=== PATIENT | female | born 1975 | race Caucasian/White ===

== ENCOUNTER 2016-10-30 18:16 | Emergency (ER) | payer MEDICAID ==
[~2016-10-30] VITALS: Ht 162.6 cm; Wt 79.5 kg
[2016-10-30 18:17] VITALS: BP 110/68
[2016-10-31] MEDS ORDERED: FLUO20CA8 PO (12:51)
[2016-10-31] MEDS ORDERED: TRAZ-136 PO (12:51)
[2016-10-31] MEDS ORDERED: TYLE325T5 PO (12:52)
[2016-10-31] MEDS ORDERED: IBUP-1022 PO (12:52)
[2016-10-31] MEDS ORDERED: CLEO300C2 PO (13:04)
== END 2016-10-30 19:11 | disposition left against medical advice (07) ==
LOC: M ED 18:16
DX: Z53.21 Procedure and treatment not carried out due to patient leaving prior to being seen by health care provider (principal); K08.89 Other specified disorders of teeth and supporting structures

== ENCOUNTER 2016-10-31 12:38 | Emergency (ER) | payer MEDICAID ==
[~2016-10-31] VITALS: Ht 162.6 cm; Wt 81.6 kg
[2016-10-31 12:38] VITALS: BP 100/55
[2016-10-31] MEDS ORDERED: TRAZ-136 PO (12:51)
[2016-10-31] MEDS ORDERED: FLUO20CA8 PO (12:51)
[2016-10-31] MEDS ORDERED: TYLE325T5 PO (12:52)
[2016-10-31] MEDS ORDERED: IBUP-1022 PO (12:52)
[2016-10-31] MEDS ORDERED: CLEO300C2 PO (13:04)
[2016-10-31] MEDS ORDERED: CLINDAMYCIN 150 MG CAP PO ONE (13:15)
[2016-10-31] MEDS ORDERED: NORCO, ANEXSIA 5/325MG TABLET (HYDROcodone/ACETAMINOPHEN) PO ONE (13:15)
== END 2016-10-31 13:37 | disposition home or self-care (01) ==
LOC: M ED 12:38
DX: K02.9 Dental caries, unspecified (principal); F33.8 Other recurrent depressive disorders; F17.210 Nicotine dependence, cigarettes, uncomplicated; Z79.899 Other long term (current) drug therapy; Z88.1 Allergy status to other antibiotic agents

== ENCOUNTER → 2016-12-25 | Outpatient (CLI) | payer MEDICAID, SELFPAY ==
[~2016-12-25] MED LIST: CLEO300C2 PO; FLUO20CA8 PO; IBUP-1022 PO; TRAZ-136 PO; TYLE325T5 PO
== END ==
LOC: M OUTALCOH 07:42
PROVIDERS: ATTEND Psychiatry & Neurology Psychiatry
DX: F12.20 Cannabis dependence, uncomplicated (principal); F14.20 Cocaine dependence, uncomplicated

== ENCOUNTER 2016-12-29 10:48 | Outpatient (RCR) | payer MEDICAID | END 2017-01-06 | LOC: M OUTALCOH 10:48 | PROVIDERS: ATTEND Psychiatry & Neurology Psychiatry | DX: F14.20 Cocaine dependence, uncomplicated (principal); F12.20 Cannabis dependence, uncomplicated; F11.20 Opioid dependence, uncomplicated; F17.200 Nicotine dependence, unspecified, uncomplicated ==

== ENCOUNTER → 2017-01-29 | Outpatient (REF) | payer MEDICAID ==
[2017-02-11 10:08] LABS: BENZODIAZEPINES, URINE SCREEN Negative ng/mL (Cutoff=200); METHADONE, URINE SCREEN Negative ng/mL (Cutoff=300); pH, URINE 5.4 (4.5-8.9)
== END ==
LOC: M LAB REF 16:06
PROVIDERS: ATTEND Nurse Practitioner Adult Health
DX: Z00.00 Encounter for general adult medical examination without abnormal findings (principal)

== ENCOUNTER → 2017-02-21 | Outpatient (REF) | payer OTHER | LOC: M SMT 17:14 | PROVIDERS: ATTEND Nurse Practitioner Family | DX: N39.46 Mixed incontinence (principal) ==

== ENCOUNTER 2017-03-15 15:34 | Outpatient (RCR) | payer MEDICAID | END 2017-04-08 | LOC: M OUTALCOH 15:34 | DX: F14.20 Cocaine dependence, uncomplicated (principal); F12.20 Cannabis dependence, uncomplicated; F11.20 Opioid dependence, uncomplicated; F17.200 Nicotine dependence, unspecified, uncomplicated ==

== ENCOUNTER → 2018-08-23 | Outpatient (CLI) | payer MEDICAID ==
[~2018-08-23] MED LIST changes: -TRAZ-136 PO; +TRAZ-163 PO
== END ==
LOC: M OUTALCOH 08:14
PROVIDERS: ATTEND Psychiatry & Neurology Psychiatry
DX: F11.20 Opioid dependence, uncomplicated (principal); F14.20 Cocaine dependence, uncomplicated; F12.20 Cannabis dependence, uncomplicated

== ENCOUNTER 2018-09-03 10:52 | Outpatient (RCR) | payer MEDICAID | END 2018-09-06 | LOC: M OUTALCOH 10:52 | PROVIDERS: ATTEND Psychiatry & Neurology Psychiatry | DX: F14.20 Cocaine dependence, uncomplicated (principal); F12.20 Cannabis dependence, uncomplicated; F11.20 Opioid dependence, uncomplicated; F17.200 Nicotine dependence, unspecified, uncomplicated ==

== ENCOUNTER → 2019-10-20 | Outpatient (CLI) | payer MEDICAID ==
[~2019-10-20] MED LIST changes: +BANO25CA PO; +CIPR-249 PO; +CLIN300C5 PO; +FLUO20CA20 PO; -FLUO20CA8 PO; +MACR100C43 PO; +OXYB10TA23 PO; +REME15TA2 PO; +REME30TA PO; +SERT-138 PO; +SUBO12MI SL; +TOPA50TA8 PO; -TRAZ-163 PO; +TRAZ-257 PO; +ZOLOFT
[2019-10-20 15:47] LABS: ALBUMIN 3.5 GM/DL (3.2-5.2); ALT/SGPT 14 U/L (12-78); BILIRUBIN,TOTAL 0.3 MG/DL (0.2-1.0); BLOOD UREA NITROGEN 16 MG/DL (7-18); CALCIUM LEVEL 8.6 MG/DL (8.5-10.1); CARBON DIOXIDE LEVEL 24 MEQ/L (21-32); CHLORIDE LEVEL 111 MEQ/L (98-107); CREATININE FOR GFR 1.19 MG/DL (0.55-1.30); GLOMERULAR FILTRATION RATE 52.2 (>58); GLUCOSE, FASTING 106 MG/DL (70-100); POTASSIUM SERUM 3.9 MEQ/L (3.5-5.1); SODIUM LEVEL 141 MEQ/L (136-145); TOTAL PROTEIN 7.1 GM/DL (6.4-8.2)
[2019-10-20 15:53] LABS: APPEARANCE, URINE HAZY (CLEAR); BACTERIA, URINE AUTO NEGATIVE (NEGATIVE); BILIRUBIN, URINE AUTO NEGATIVE (NEGATIVE); BLOOD, URINE BLOOD NEGATIVE (NEGATIVE); CALCIUM OXALATE CRYSTALS LARGE; COLOR, URINE YELLOW (YELLOW); GLUCOSE, URINE (UA) AUTO NEGATIVE (NEGATIVE); KETONE, URINE AUTO NEGATIVE (NEGATIVE); LEUKOCYTE ESTERASE, URINE AUTO 3+ (NEGATIVE); MUCUS, URINE SMALL (NEGATIVE); NITRITE, URINE AUTO NEGATIVE (NEGATIVE); PROTEIN, URINE AUTO NEGATIVE (NEGATIVE); RBC, URINE AUTO 10 /HPF (0-3); SPECIFIC GRAVITY URINE AUTO 1.021 (1.002-1.035); SQUAMOUS EPITHELIAL CELL UR AU 5 /HPF (0-6); UROBILINOGEN, URINE AUTO 0.2 mg/dL (0.0-2.0); WBC, URINE AUTO 22 /HPF (0-3)
[2019-10-20 15:56] LABS: HEPATITIS B SURFACE ANTIBODY NEGATIVE (POSITIVE)
[2019-10-20 15:58] LABS: BASO # 0.1 10^3/uL (0.0-0.2); BASO % 0.9 % (0.0-1.0); EOS # 0.1 10^3/uL (0.0-0.5); EOS % 1.4 % (0.0-3.0); HEMATOCRIT 39.2 % (36.0-47.0); HEMOGLOBIN 12.6 g/dl (12.0-15.5); LYMPH # 2.1 10^3/uL (1.5-5.0); LYMPH % 26.3 % (24.0-44.0); MEAN CORPUSCULAR HEMOGLOBIN 28.8 pg (27.0-33.0); MEAN CORPUSCULAR HGB CONC 32.1 g/dl (32.0-36.5); MEAN CORPUSCULAR VOLUME 89.5 fl (80.0-96.0); MONO # 0.4 10^3/uL (0.0-0.8); MONO % 5.3 % (0.0-5.0); NEUTROPHILS # 5.2 10^3/uL (1.5-8.5); NEUTROPHILS % 65.7 % (36.0-66.0); PLATELET COUNT, AUTOMATED 282 10^3/uL (150-450); RED BLOOD COUNT 4.38 10^6/uL (4.00-5.40); WHITE BLOOD COUNT 7.9 10^3/uL (4.0-10.0)
[2019-10-20 16:07] LABS: HEPATITIS B SURFACE ANTIGEN NEGATIVE (NEGATIVE)
[2019-10-25 01:07] LABS: HEPATITIS A IgG TOTAL Positive (Negative); HEPATITIS C QUANTITATION HCV Not Detected IU/mL (.)
== END ==
LOC: M PLALAB 13:19
PROVIDERS: ATTEND Physician Assistant Medical
DX: Z02.2 Encounter for examination for admission to residential institution (principal)

== ENCOUNTER 2019-12-25 14:25 | Emergency (ER) | payer MEDICAID ==
[~2019-12-25] VITALS: Ht 162.6 cm; Wt 90.8 kg
[~2019-12-25 14:25] MED LIST changes: -BANO25CA PO; -CIPR-249 PO; -CLIN300C5 PO; -MACR100C43 PO; -OXYB10TA23 PO; -REME15TA2 PO; -REME30TA PO; -SERT-138 PO; -SUBO12MI SL; -TOPA50TA8 PO; -ZOLOFT
[2019-12-25] MEDS ORDERED: TOPA50TA8 PO (14:35)
[2019-12-25] MEDS ORDERED: ZOLOFT (14:35)
[2019-12-25] MEDS ORDERED: REME30TA PO (14:35)
[2019-12-25] MEDS ORDERED: SUBO12MI SL (14:35)
[2019-12-25] MEDS ORDERED: PANTOPRAZOLE 40MG VIAL (C9113 PER 1) IV ONE (15:30)
[2019-12-25] MEDS ORDERED: NS 1,000 ML IV ONE (15:30)
--- NOTE | 2019-12-25 15:57 | REPVR ---
PROCEDURE INFORMATION: Exam: XR Complete Acute Abdomen Series Exam date and time: 12/25/2019 3:18 PM Age: 44 years old Clinical indication: Abdominal pain TECHNIQUE: Imaging protocol: XR complete acute abdomen series, including 2 or more views of the abdomen and a single view chest. COMPARISON: No relevant prior studies available. FINDINGS: Lungs: No acute airspace disease. Pleural space: No pleural effusion. Heart/Mediastinum: Normal configuration of the heart. Gastrointestinal tract: Bowel dilatation, disproportionately involving the colon, along with prominent stool. Intraperitoneal space: No free air. Bones/joints: Cervical spine fusion. IMPRESSION: 1. No acute airspace or pleural disease. 2. Bowel dilatation, disproportionately involving the colon, along with prominent stool. Electronically signed by: George Bright On 12/25/2019 15:57:30 PM
[2019-12-25 16:13] LABS: BASO # 0.1 10^3/uL (0.0-0.2); EOS # 0.4 10^3/uL (0.0-0.5); EOS % 6.3 % (0.0-3.0); HEMATOCRIT 32.3 % (36.0-47.0); HEMOGLOBIN 10.7 g/dl (12.0-15.5); LYMPH # 2.5 10^3/uL (1.5-5.0); LYMPH % 43.8 % (24.0-44.0); MEAN CORPUSCULAR HEMOGLOBIN 28.8 pg (27.0-33.0); MEAN CORPUSCULAR HGB CONC 33.1 g/dl (32.0-36.5); MEAN CORPUSCULAR VOLUME 86.8 fl (80.0-96.0); MONO # 0.4 10^3/uL (0.0-0.8); MONO % 7.5 % (0.0-5.0); NEUTROPHILS # 2.4 10^3/uL (1.5-8.5); NEUTROPHILS % 41.1 % (36.0-66.0); PLATELET COUNT, AUTOMATED 209 10^3/uL (150-450); RED BLOOD COUNT 3.72 10^6/uL (4.00-5.40); WHITE BLOOD COUNT 5.8 10^3/uL (4.0-10.0)
[2019-12-25 16:34] LABS: ALBUMIN 3.2 GM/DL (3.2-5.2); ALT/SGPT 14 U/L (12-78); BILIRUBIN,DIRECT < 0.1 MG/DL (0.0-0.2); BILIRUBIN,TOTAL 0.3 MG/DL (0.2-1.0); BLOOD UREA NITROGEN 18 MG/DL (7-18); CALCIUM LEVEL 8.5 MG/DL (8.5-10.1); CARBON DIOXIDE LEVEL 22 MEQ/L (21-32); CHLORIDE LEVEL 110 MEQ/L (98-107); GLOMERULAR FILTRATION RATE 57.2 (>58); GLUCOSE, FASTING 84 MG/DL (70-100); LIPASE 464 U/L (73-393); POTASSIUM SERUM 3.9 MEQ/L (3.5-5.1); SODIUM LEVEL 139 MEQ/L (136-145); TOTAL PROTEIN 6.6 GM/DL (6.4-8.2)
[2019-12-25] MEDS ORDERED: CIPR-249 PO (19:56)
[2019-12-25] MEDS ORDERED: MAGNESIUM CITRATE 300 ML BTL PO ONE (20:00)
[2019-12-25] MEDS ORDERED: CIPROFLOXACIN 500MG TABLET PO ONE (20:00)
[2019-12-25 20:21] VITALS: BP 112/63
== END 2019-12-25 20:23 | disposition home or self-care (01) ==
LOC: M ED 14:25
DX: N39.0 Urinary tract infection, site not specified (principal); K59.00 Constipation, unspecified; I10 Essential (primary) hypertension; F15.10 Other stimulant abuse, uncomplicated; Z79.899 Other long term (current) drug therapy
CPT/HCPCS: 74021; 80048; 80076; 81001; 83690; 85025; 87086; 96361; 96374; 99284; C9113

== ENCOUNTER → 2020-01-14 | Outpatient (CLI) | payer OTHER ==
[~2020-01-14] MED LIST changes: +CIPR-249 PO; +REME30TA PO; +SUBO12MI SL; +TOPA50TA8 PO; +ZOLOFT
--- NOTE | 2020-01-19 12:45 | REPPI ---
CHEST X-RAY: 3-VIEWS PRESENTED HISTORY: Chronic obstructive pulmonary disease (COPD). COMPARISON STUDY: None. FINDINGS: The patient is status post ventral discectomy and fusion plating in the cervical spine. The lungs are well-inflated and clear. The pleural angles are sharp. Heart size is normal. Pulmonary vasculature is not increased. No bony abnormality is seen. Mild gaseous distention of the stomach is noted in the upper abdomen. IMPRESSION: Status post cervical spine fusion. Otherwise, no acute disease. MTDD
== END ==
LOC: M PLAIMG 13:05
PROVIDERS: ATTEND Physician Assistant Medical
DX: J44.9 Chronic obstructive pulmonary disease, unspecified (principal); Z98.1 Arthrodesis status

== ENCOUNTER → 2020-02-02 | Outpatient (CLI) | payer MEDICAID, OTHER ==
[~2020-02-02] MED LIST changes: +BANO25CA PO; +CLIN300C5 PO; +MACR100C43 PO; +OXYB10TA23 PO; +REME15TA2 PO; +SERT-138 PO
--- NOTE | 2020-02-02 15:48 | REPMRS ---
Patient History The patient states she had a clinical breast exam in December 2019. No known family history of cancer. 3D TOMOSYNTHESIS WAS PERFORMED. [facility] lifetime risk for breast cancer is 8.6%. Volpara breast density b . Digital Woman Screen Mammo: February 02, 2020 - Exam #: [id number] Bilateral CC and MLO view(s) were taken. Technologist: Tali Dailey, Technologist No prior studies available for comparison. FINDINGS: There are scattered fibroglandular densities. There is a mild amount of residual fibroglandular tissue which is fairly symmetric. There is no dominant mass, architectural distortion, or clustered microcalcification suggestive of malignancy. Assessment: BI-RADS/ACR category 1 mammogram. Negative Mammogram. Recommendation Routine screening mammogram in 1 year (for women over age 40). This mammogram was interpreted with the aid of an FDA-approved computer-aided dectection system. Electronically Signed By: Oumar Goodrich MD 02/02/20 [id number]
== END ==
LOC: M WHC 14:24
PROVIDERS: ATTEND Nurse Practitioner Family
DX: Z12.31 Encounter for screening mammogram for malignant neoplasm of breast (principal)

== ENCOUNTER 2020-02-15 16:34 | Emergency (ER) | payer OTHER ==
[~2020-02-15] VITALS: Ht 157.5 cm; Wt 93.4 kg
[~2020-02-15 16:34] MED LIST changes: -BANO25CA PO; -CLIN300C5 PO; -MACR100C43 PO; -OXYB10TA23 PO; -REME15TA2 PO; -SERT-138 PO
[2020-02-15] MEDS ORDERED: KETOROLAC 60MG 2ML VIAL IM ONE (17:15)
[2020-02-15] MEDS ORDERED: ACETAMINOPHEN 500 MG TAB PO ONE (17:15)
[2020-02-15 17:33] LABS: BASO # 0.1 10^3/uL (0.0-0.2); EOS # 0.4 10^3/uL (0.0-0.5); EOS % 4.8 % (0.0-3.0); HEMATOCRIT 36.7 % (36.0-47.0); HEMOGLOBIN 11.3 g/dl (12.0-15.5); LYMPH # 3.8 10^3/uL (1.5-5.0); LYMPH % 46.2 % (24.0-44.0); MEAN CORPUSCULAR HEMOGLOBIN 26.8 pg (27.0-33.0); MEAN CORPUSCULAR HGB CONC 30.8 g/dl (32.0-36.5); MONO # 0.5 10^3/uL (0.0-0.8); MONO % 6.4 % (0.0-5.0); NEUTROPHILS # 3.4 10^3/uL (1.5-8.5); NEUTROPHILS % 41.4 % (36.0-66.0); PLATELET COUNT, AUTOMATED 308 10^3/uL (150-450); RED BLOOD COUNT 4.22 10^6/uL (4.00-5.40); WHITE BLOOD COUNT 8.1 10^3/uL (4.0-10.0)
[2020-02-15 17:53] LABS: ERYTHROCYTE SEDIMENTATION RATE 25 mm/hr (0-20)
[2020-02-15] MEDS ORDERED: REME15TA2 PO (18:08)
[2020-02-15] MEDS ORDERED: SERT-138 PO (18:08)
[2020-02-15] MEDS ORDERED: OXYB10TA23 PO (18:12)
[2020-02-15] MEDS ORDERED: CLIN300C5 PO (18:12)
[2020-02-15] MEDS ORDERED: BANO25CA PO (18:12)
--- NOTE | 2020-02-15 18:44 | REPVR ---
PROCEDURE INFORMATION: Exam: US Nonobstetric Pelvis; Complete Exam date and time: 02/15/2020 5:36 PM Age: 44 years old Clinical indication: Pelvic pain; Prior surgery; Surgery type: Attempted cervical biopsy but provider unable to see cervix; Additional info: Pelvic pain since recent instrumentation TECHNIQUE: Imaging protocol: Transabdominal pelvic nonobstetric ultrasound. Complete exam. Real time ultrasound with image documentation. COMPARISON: No relevant prior studies available. FINDINGS: Uterus/cervix: The uterus measures 9.8 cm in length by 4.7 cm in thickness by 7.2 cm in transverse dimension and retroverted. The endometrium measures 8 mm in thickness. There are nabothian cysts of the cervix. There is evidence of a small amount blood within the central portion of the cervix along with septations.. Left adnexa: The left ovary measures 2.8 cm in length by 1.9 cm in thickness. There is a clear cyst of the left ovary which measures 1.9 cm. There is vascular flow of the left ovary with no evidence of torsion. The right ovary could not be identified. Intraperitoneal space: There is small amount fluid in the cul-de-sac. Bladder: The urinary bladder has only a small amount of fluid and cannot be completely evaluated. IMPRESSION: 1. The uterus is retroverted and the endometrium appears within the range of normal. 2. There are nabothian cysts within the cervix and there is also septation and a small amount of serous blood. 3. The right ovary could not be identified. 4. Functional cyst left ovary 1.9 cm. 5. Small amount of free fluid in the cul-de-sac Electronically signed by: Ean Castillo On 02/15/2020 18:44:28 PM
[2020-02-15 19:04] VITALS: BP 116/56
[2020-02-15] MEDS ORDERED: MACR100C43 PO (19:52)
[2020-02-15] MEDS ORDERED: NITROFURANTOIN (MACROBID) 100 MG CAP PO ONE (20:00)
== END 2020-02-15 20:00 | disposition home or self-care (01) ==
LOC: M ED 16:34
DX: N88.8 Other specified noninflammatory disorders of cervix uteri (principal); Z79.899 Other long term (current) drug therapy; F17.210 Nicotine dependence, cigarettes, uncomplicated
CPT/HCPCS: 36415; 76830; 76856; 80047; 81001; 84702; 85025; 85652; 86140; 87086; 93976; 96372; 99283; J1885

== ENCOUNTER → 2020-03-06 | Outpatient (CLI) | payer OTHER ==
[~2020-03-06] MED LIST changes: +BANO25CA PO; +CLIN300C6 PO; +MACR100C43 PO; +MIRT-60 PO; +OXYB10TA23 PO; +REME15TA2 PO; -REME30TA PO; +SERT-138 PO
== END ==
LOC: M LABSMTC 08:51
PROVIDERS: ATTEND Orthopaedic Surgery
DX: Z01.812 Encounter for preprocedural laboratory examination (principal); Z20.828 Contact with and (suspected) exposure to other viral communicable diseases

== ENCOUNTER → 2020-04-06 | Outpatient (CLI) | payer OTHER ==
--- NOTE | 2020-04-06 12:57 | REP ---
INDICATION: PAIN IN LEFT FOOT COMPARISON: None. TECHNIQUE: AP, lateral views of the left foot FINDINGS: The osseous structures and joint spaces are intact and normal. There is no evidence for acute fracture or dislocation. Surrounding soft tissues are unremarkable. No subcutaneous emphysema or radiodense foreign body. IMPRESSION: Normal left foot radiographs. No acute fracture or dislocation. <Electronically signed by Jone Nye > 04/06/20 [id number]
[2020-04-06 13:09] LABS: BASO # 0.1 10^3/uL (0.0-0.2); BASO % 0.9 % (0.0-1.0); EOS # 0.3 10^3/uL (0.0-0.5); EOS % 2.9 % (0.0-3.0); HEMATOCRIT 38.5 % (36.0-47.0); HEMOGLOBIN 11.8 g/dl (12.0-15.5); LYMPH # 2.8 10^3/uL (1.5-5.0); LYMPH % 28.4 % (24.0-44.0); MEAN CORPUSCULAR HEMOGLOBIN 26.5 pg (27.0-33.0); MEAN CORPUSCULAR HGB CONC 30.6 g/dl (32.0-36.5); MEAN CORPUSCULAR VOLUME 86.3 fl (80.0-96.0); MONO # 0.5 10^3/uL (0.0-0.8); MONO % 5.5 % (0.0-5.0); NEUTROPHILS # 6.1 10^3/uL (1.5-8.5); NEUTROPHILS % 61.9 % (36.0-66.0); PLATELET COUNT, AUTOMATED 287 10^3/uL (150-450); RED BLOOD COUNT 4.46 10^6/uL (4.00-5.40); WHITE BLOOD COUNT 9.8 10^3/uL (4.0-10.0)
[2020-04-06 13:12] LABS: APPEARANCE, URINE HAZY (CLEAR); BACTERIA, URINE AUTO NEGATIVE (NEGATIVE); BILIRUBIN, URINE AUTO NEGATIVE (NEGATIVE); BLOOD, URINE BLOOD 1+ (NEGATIVE); COLOR, URINE YELLOW (YELLOW); GLUCOSE, URINE (UA) AUTO NEGATIVE (NEGATIVE); KETONE, URINE AUTO NEGATIVE (NEGATIVE); LEUKOCYTE ESTERASE, URINE AUTO NEGATIVE (NEGATIVE); NITRITE, URINE AUTO NEGATIVE (NEGATIVE); PROTEIN, URINE AUTO NEGATIVE (NEGATIVE); RBC, URINE AUTO 0 /HPF (0-3); SQUAMOUS EPITHELIAL CELL UR AU 4 /HPF (0-6); UROBILINOGEN, URINE AUTO 0.2 mg/dL (0.0-2.0); WBC, URINE AUTO 1 /HPF (0-3)
[2020-04-06 13:42] LABS: ALBUMIN 3.7 GM/DL (3.2-5.2); ALT/SGPT 12 U/L (12-78); BILIRUBIN,TOTAL 0.3 MG/DL (0.2-1.0); BLOOD UREA NITROGEN 14 MG/DL (7-18); CALCIUM LEVEL 8.7 MG/DL (8.5-10.1); CARBON DIOXIDE LEVEL 26 MEQ/L (21-32); CHLORIDE LEVEL 105 MEQ/L (98-107); CREATININE FOR GFR 1.21 MG/DL (0.55-1.30); GLOMERULAR FILTRATION RATE 51.2 (>58); GLUCOSE, FASTING 79 MG/DL (70-100); POTASSIUM SERUM 3.8 MEQ/L (3.5-5.1); SODIUM LEVEL 137 MEQ/L (136-145); TOTAL PROTEIN 7.3 GM/DL (6.4-8.2)
[2020-04-06 14:02] LABS: HEPATITIS B SURFACE ANTIGEN NEGATIVE (NEGATIVE)
[2020-04-06 14:30] LABS: HEPATITIS B CORE ANTIBODY IGM NEGATIVE (NEGATIVE)
[2020-04-06 14:31] LABS: HEPATITIS A ANTIBODY IGM NEGATIVE (NEGATIVE)
[2020-04-06 14:37] LABS: HEPATITIS C VIRUS ABY INDEX > 11.0 INDEX (<0.8)
== END ==
LOC: M LAB 12:23
PROVIDERS: ATTEND Physician Assistant Medical
DX: M79.672 Pain in left foot (principal)

== ENCOUNTER → 2022-03-17 | Outpatient (REF) ==
[~2022-03-17] MED LIST changes: -BANO25CA PO; +CLIN-250 PO; -CLIN300C6 PO; +DIPH-319 PO; +FLUO-96 PO; -FLUO20CA20 PO
== END ==
LOC: M RAD 08:42
PROVIDERS: ATTEND Internal Medicine
DX: R52 Pain, unspecified (principal)

== ENCOUNTER 2022-08-31 10:38 | Emergency (ER) | payer OTHER ==
[~2022-08-31] VITALS: Ht 157.5 cm; Wt 99.3 kg
[2022-08-31 10:39] VITALS: BP 139/80
[2022-08-31] MEDS ORDERED: QUET300T2 (10:48)
[2022-08-31] MEDS ORDERED: sertraline PO (10:48)
[2022-08-31] MEDS ORDERED: MIRT-11 (10:48)
== END 2022-08-31 12:52 | disposition home or self-care (01) ==
LOC: M ED 10:38
DX: S90.811A Abrasion, right foot, initial encounter (principal); W19.XXXA Unspecified fall, initial encounter; Y92.89 Other specified places as the place of occurrence of the external cause; Y93.89 Activity, other specified; Y99.8 Other external cause status; M25.512 Pain in left shoulder; Z76.0 Encounter for issue of repeat prescription; G47.00 Insomnia, unspecified; F10.10 Alcohol abuse, uncomplicated; F19.10 Other psychoactive substance abuse, uncomplicated; F17.210 Nicotine dependence, cigarettes, uncomplicated; Z79.899 Other long term (current) drug therapy